=== PATIENT | female | born 1985 | race Caucasian/White ===

== ENCOUNTER 2018-09-24 17:00 | Emergency (ER) | payer OTHER ==
[2018-09-24 17:12] VITALS: O2SAT 98
--- NOTE | 2018-09-24 18:00 | ERPHSYRPT ---
- History of Present Illness Time Seen by Provider: 09/24/18 17:55 Source: patient, family Exam Limitations: no limitations Patient Subjective Stated Complaint: pt here for a wound check, she was burnt by grease to left hand 8 days ago pt has been seen x2 for this and is alternating slivadine and tripple antiboitc ointment Triage Nursing Assessment: pt left hand with swelling to top of hand, with open area to top of hand, has small amount of drainage to dression Physician History: The patient is a right-handed 33-year-old female who complains of accidentally burning her left hand in hot oil where she works at [employer] 8 days ago. She has been putting Silvadene and triple antibiotic on it. 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 It is swollen. She wants it evaluated again. Timing/Duration: day(s) (8), sudden, improved Quality: painful Severity: moderate Location: hands (left) Possible Causes: other (hot oil) Associated Symptoms: change in skin texture Allergies/Adverse Reactions: No Known Drug Allergies Allergy (Verified 09/24/18 17:12) Hx Tetanus, Diphtheria Vaccination/Date Given: Yes Hx Influenza Vaccination/Date Given: No Hx Pneumococcal Vaccination/Date Given: No Immunizations Up to Date: Yes - Review of Systems Constitutional: No Fever, No Chills Eyes: No Symptoms Ears, Nose, & Throat: No Symptoms Respiratory: No Cough, No Dyspnea Cardiac: No Chest Pain, No Edema, No Syncope Abdominal/Gastrointestinal: No Abdominal Pain, No Nausea, No Vomiting, No Diarrhea Genitourinary Symptoms: No Dysuria Musculoskeletal: No Back Pain, No Neck Pain Skin: Skin Lesions Neurological: No Dizziness, No Focal Weakness, No Sensory Changes Psychological: No Symptoms Endocrine: No Symptoms Hematologic/Lymphatic: No Symptoms Immunological/Allergic: No Symptoms All Other Systems: Reviewed and Negative - Past Medical History Pertinent Past Medical History: Yes Neurological History: Epilepsy, Seizures ENT History: No Pertinent History Cardiac History: No Pertinent History Respiratory History: No Pertinent History Endocrine Medical History: No Pertinent History Musculoskeletal History: No Pertinent History GI Medical History: No Pertinent History History: No Pertinent History Psycho-Social History: Anxiety, Depression Female Reproductive Disorders: No Pertinent History Other Medical History: Depression and anxiety. Tobacco Abuse - 1/2-1 ppd per patient. - Past Surgical History Past Surgical History: Yes Neuro Surgical History: No Pertinent History Cardiac: No Pertinent History Respiratory: No Pertinent History Gastrointestinal: No Pertinent History Genitourinary: No Pertinent History Musculoskeletal: No Pertinent History Female Surgical History: Section, Tubal Ligation Other Surgical History: d & c, X2 - Social History Smoking Status: Current every day smoker How long have you smoked: 14 years Exposure to second hand smoke: Yes Drug Use: none Patient Lives Alone: No - Female History Hx Last Menstrual Period: dec Hx Now: No - Nursing Vital Signs Nursing Vital Signs: Initial Vital Signs Temperature 98.5 F 09/24/18 17:06 Pulse Rate 91 H 09/24/18 17:06 Respiratory Rate 16 09/24/18 17:06 Blood Pressure 125/79 09/24/18 17:06 O2 Sat by Pulse Oximetry 98 09/24/18 17:06 Pain Scale Pain Intensity 9 - Physical Exam General Appearance: no apparent distress, alert Eye Exam: PERRL/EOMI, eyes nml inspection Ears, Nose, Throat Exam: normal ENT inspection, pharynx normal, moist mucous membranes Neck Exam: normal inspection, non-tender, supple, full range of motion Respiratory Exam: normal breath sounds, lungs clear, No respiratory distress Cardiovascular Exam: regular rate/rhythm, normal heart sounds Gastrointestinal/Abdomen Exam: soft, mass, No tenderness Pelvic Exam: not done Rectal Exam: not done Back Exam: normal inspection, normal range of motion, No CVA tenderness, No vertebral tenderness Extremity Exam: normal inspection, normal range of motion Neurologic Exam: alert, oriented x 3, cooperative, normal mood/affect, sensation nml, No motor deficits Skin Exam: other (On the dorsal aspect of the left hand there is a silver dollar sized area of healing pink skin tissue that is surrounded by sloughing skin from the large blister that had occurred due to the burn 8 days ago. The hand is mildly swollen. It is tender and painful for her to move her fingers.) SpO2 Interpretation: normal SpO2: 98 Oxygen Delivery: Room Air - Progress Progress Note: 09/24/18 18:00 The hand appears to be healing from the burn. However, because of the patient' s tenderness to area and mild swelling, I have elected to give Rocephin 1 g IM followed by Augmentin 875 one tablet twice a day for 10 days. - Departure Time of Disposition: 18:00 Departure Disposition: Home Clinical Impression: Burn of left hand Condition: Stable Critical Care Time: No Referrals: ANA MULLER MD [Primary Care Provider] - Additional Instructions: You have a healing burn to the backside of your left hand. Because of the tenderness and swelling, you were given Rocephin 1 g IM in the ER. Take Augmentin 875 one tablet 2 times a day for 10 days. You were also given Toradol 60 mg by IM in the ER. Continue with the Silvadene cream to the area. Follow-up with your primary medical doctor as needed. Prescriptions: Amoxicillin/Potassium Clav [Augmentin 875-125 Tablet] 875 mg PO BID #20 tablet
[2018-09-24] MEDS ORDERED: Rocephin 1000 MG INJ IM ONE (18:02)
[2018-09-24] MEDS ORDERED: TORAdol 30 mg Injection IM ONE (18:02)
[2018-09-24] MEDS ORDERED: TORAdol 30 mg Injection ONE (18:08)
[2018-09-24] MEDS ORDERED: XYLOCAINE 1% HCL 20 ML MDV ONE (18:09)
[2018-09-24] MEDS ORDERED: Rocephin 1000 MG INJ ONE (18:09)
[2018-09-24 18:36] VITALS: BP 114/69; PULSE 88
== END 2018-09-24 18:37 | disposition home or self-care (01) ==
LOC: ED 17:00
DX: T23.062D Burn of unspecified degree of back of left hand, subsequent encounter (principal)
CPT/HCPCS: 96372; 99284; J0696; J1885

== ENCOUNTER 2019-11-20 08:28 | Emergency (ER) | payer OTHER ==
--- NOTE | 2019-11-20 08:50 | ERPHSYRPT ---
- History of Present Illness Time Seen by Provider: 11/20/19 08:40 Source: patient Exam Limitations: no limitations Patient Subjective Stated Complaint: Headache Triage Nursing Assessment: Patient ambulated back to ED and transferred self to bed. Patient A+O X3. Patient's skin pink, warm and dry. Patient complains of headache for 5 days constant throbbing pain 8/10. Patient pupils PERRL. Patient also complains of dizziness. Patient has hx of migraines. Physician History: The patient is a 34-year-old female with a past medical history significant for migraine headaches as well as seizures presents with a chief complaint of a headache that started 5 days ago. Her headache was described as a sharp headache that was located diffusely across her entire head. The headache reportedly gradually became worse over the course of 5 days despite her taking Tylenol PM at night to go to bed in addition to Aleve. She also complained of photophobia, chills, nasal congestion as well as a nonproductive cough started within this time course as well. She denies fever, neck pain, vomiting, diarrhea, abdominal pain, shortness of breath and chest pain. Of note, the patient accompanied to other patients who are currently being evaluated in the ED for cough and cold symptoms. Her headache reportedly is mild to moderate severity and constant. She denies any recent head trauma, focal neuro deficits, vomiting, monoxide poisoning, phonophobia, and is currently being evaluated by a neurologist in [place] who reportedly is weaning her off Dilantin and started on Keppra for her seizures. The patient denies any recent seizure activity. She currently smokes but denies alcohol use in addition to illicit drug use to include IV drug use. Allergies/Adverse Reactions: No Known Drug Allergies Allergy (Verified 11/20/19 08:32) Hx Tetanus, Diphtheria Vaccination/Date Given: Yes Hx Influenza Vaccination/Date Given: No Hx Pneumococcal Vaccination/Date Given: No Immunizations Up to Date: Yes - Review of Systems Constitutional: Chills, No Fever Eyes: Photophobia Ears, Nose, & Throat: Ear Pain, Nose Congestion Respiratory: Cough, No Cyanosis, No Dyspnea, No Dyspnea on Exertion (PUENTES), No Stridor, No Wheezing Cardiac: No Chest Pain, No Syncope Abdominal/Gastrointestinal: Nausea, No Abdominal Pain, No Vomiting Genitourinary Symptoms: No Symptoms Musculoskeletal: Myalgias Skin: No Symptoms Neurological: No Symptoms Psychological: No Symptoms Endocrine: No Symptoms Hematologic/Lymphatic: No Symptoms Immunological/Allergic: No Symptoms All Other Systems: Reviewed and Negative - Past Medical History Pertinent Past Medical History: Yes Neurological History: Migraines, Seizures ENT History: No Pertinent History Cardiac History: No Pertinent History Respiratory History: No Pertinent History Endocrine Medical History: No Pertinent History Musculoskeletal History: No Pertinent History GI Medical History: No Pertinent History History: No Pertinent History Psycho-Social History: Anxiety, Depression Female Reproductive Disorders: No Pertinent History Other Medical History: PT. IS A SMOKER - Past Surgical History Past Surgical History: Yes Neuro Surgical History: No Pertinent History Cardiac: No Pertinent History Respiratory: No Pertinent History Gastrointestinal: No Pertinent History Genitourinary: No Pertinent History Musculoskeletal: No Pertinent History Female Surgical History: Section, Tubal Ligation Other Surgical History: d & c, X2 - Social History Smoking Status: Current every day smoker How long have you smoked: years Exposure to second hand smoke: Yes Drug Use: none Patient Lives Alone: No - Female History Hx Last Menstrual Period: end of last month Hx Now: No - Nursing Vital Signs Nursing Vital Signs: Initial Vital Signs Temperature 99.1 F 11/20/19 08:35 Pulse Rate 115 H 11/20/19 08:35 Respiratory Rate 20 11/20/19 08:35 Blood Pressure 118/74 11/20/19 08:35 O2 Sat by Pulse Oximetry 99 11/20/19 08:35 Pain Scale Pain Intensity 3 - Physical Exam General Appearance: no apparent distress, alert Eye Exam: PERRL/EOMI, other (Patient's conjunctive appear to be injected bilaterally), No scleral icterus Ears, Nose, Throat Exam: normal ENT inspection, pharynx normal, No TM abnormal ( R), No TM abnormal (L), No pharyngeal erythema, No tonsillar exudate Neck Exam: normal inspection, non-tender, supple, No meningismus, No Brudzinski , No Kernig's, No JVD Respiratory Exam: normal breath sounds, lungs clear, airway intact, No chest tenderness, No respiratory distress Cardiovascular Exam: normal peripheral pulses, tachycardia, capillary refill <2 sec, No murmur, No friction rub, No gallop Gastrointestinal/Abdomen Exam: soft, No tenderness, No distention, No mass, No guarding Pelvic Exam: not done Rectal Exam: deferred Back Exam: normal inspection Extremity Exam: normal inspection Neurologic Exam: alert, oriented x 3, cooperative, normal mood/affect, No motor deficits, No sensory deficit, No slurred speech, No EOM palsy Skin Exam: normal color, warm, dry, No rash, No petechiae, No jaundice SpO2 Interpretation: normal SpO2: 99 O2 Delivery: Room Air - Course Nursing assessment & vital signs reviewed: Yes - Radiology Exams Chest X-ray Interpretation: Reviewed by me, Negative Ordered Tests: Active Orders 24 hr Category Date Time Status IV Insertion STAT Care 11/20/19 09:00 Active CHEST 2 VIEWS (PA AND LAT) Stat Exams 11/20/19 08:59 Completed HCG,QUALITATIVE URINE Stat Lab 11/20/19 10:15 Completed UA W/RFX UR CULTURE Stat Lab 11/20/19 10:11 Ordered Medication Summary Discontinued Medications Generic Name Dose Route Start Last Admin Trade Name Freq PRN Reason Stop Dose Admin Diphenhydramine HCl 25 mg 11/20/19 09:00 11/20/19 09:21 Benadryl 50 Mg/Ml IV 11/20/19 09:01 25 mg STAT ONE Administration Diphenhydramine HCl Confirm 11/20/19 09:16 Benadryl 50 Mg/Ml Administered 11/20/19 09:17 Dose 50 mg .ROUTE .STK-MED ONE Sodium Chloride 1,000 mls @ 999 mls/hr 11/20/19 08:59 11/20/19 10:37 Sodium Chloride 0.9% 1000 Ml IV 11/20/19 09:59 Infused .Q1H1M STA Infusion Sodium Chloride Confirm 11/20/19 09:16 Sodium Chloride 0.9% 1000 Ml Administered 11/20/19 09:17 Dose 1,000 mls @ ud .ROUTE .STK-MED ONE Ketorolac Tromethamine 15 mg 11/20/19 09:00 11/20/19 09:21 Toradol 30 Mg Injection IV 11/20/19 09:01 15 mg STAT ONE Administration Ketorolac Tromethamine Confirm 11/20/19 09:16 Toradol 30 Mg Injection Administered 11/20/19 09:17 Dose 30 mg .ROUTE .STK-MED ONE Metoclopramide HCl 10 mg 11/20/19 09:00 11/20/19 09:20 Reglan 10 Mg/2 Ml IV 11/20/19 09:01 10 mg STAT ONE Administration Metoclopramide HCl Confirm 11/20/19 09:16 Reglan 10 Mg/2 Ml Administered 11/20/19 09:17 Dose 10 mg .ROUTE .STK-MED ONE Ondansetron HCl 4 mg 11/20/19 09:00 11/20/19 09:19 Zofran 4 Mg/2 Ml Vial IV 11/20/19 09:01 4 mg STAT ONE Administration Ondansetron HCl Confirm 11/20/19 09:16 Zofran 4 Mg/2 Ml Vial Administered 11/20/19 09:17 Dose 4 mg .ROUTE .STK-MED ONE Lab/Rad Data: Laboratory Results 11/20/19 11/20/19 Range/Units 10:15 09:04 Urine HCG, Qual NEGATIVE (Negative) Influenza Type A Ag POSITIVE (NEGATIVE) Influenza Type B Ag NEGATIVE (NEGATIVE) RSV (PCR) NEGATIVE (Negative) - Progress Progress: improved, re-examined Progress Note: 11/20/19 10:30 Patient is reassessed to find that her headache symptoms had improved. I informed her of her influenza A diagnosis and that if her UPT came back negative she would be discharged home. She was also informed that her chest x- ray showed no evidence of pneumonia. Given that she is out of the window for oral therapy, specifically greater than 48 hours of symptoms, I will defer prescribing Tamiflu or Xofluza at this time. Instructed to take Tylenol and/or ibuprofen in a rotating fashion to treat her symptoms and I will discharge her with a prescription for Zofran, saline nasal spray in addition to Afrin for symptomatic therapy. She is instructed to quarantine herself and to cover her mouth whenever she coughs to prevent spreading of the virus. She agreed with and verbally understood the discharge plan. 11/20/19 10:39 He was negative. The patient will be discharged home. Counseled pt/family regarding: lab results, diagnosis, need for follow-up, rad results - Departure Departure Disposition: Home Clinical Impression: Influenza A Condition: Stable Critical Care Time: No Referrals: ANA MULLER MD [Primary Care Provider] - Instructions: Flu, Adult (DC) Additional Instructions: Take Tylenol and/or ibuprofen as needed for any fever, aches or pains. He can purchase these medications [id number]. Please take these medications as instructed on the medication bottle. Prescriptions: Benzonatate [Tessalon Perle] 100 mg PO [id number] PRN #30 capsule PRN Reason: Cough Oxymetazoline HCl Nasal [Afrin Nasal Candler] 15 ml NS BID 3 Days #1 bottle Sodium Chloride [Saline Nasal Candler] 30 ml NS BID PRN #1 spray
[2019-11-20] MEDS ORDERED: TORAdol 30 mg Injection ONE (09:16)
[2019-11-20] MEDS ORDERED: Sodium Chloride 0.9% 1000 ML 1,000 ML ONE (09:16)
[2019-11-20] MEDS ORDERED: BENADRYL 50 MG/ML ONE (09:16)
[2019-11-20] MEDS ORDERED: Zofran 4 MG/2 ML VIAL ONE (09:16)
[2019-11-20] MEDS ORDERED: Reglan 10 MG/2 ML ONE (09:16)
[2019-11-20] MEDS: Zofran 4 MG/2 ML VIAL IV ONE (09:19)
[2019-11-20] MEDS: Reglan 10 MG/2 ML IV ONE (09:20)
[2019-11-20] MEDS: BENADRYL 50 MG/ML IV ONE (09:21)
[2019-11-20] MEDS: TORAdol 30 mg Injection IV ONE (09:21)
[2019-11-20] MEDS: Sodium Chloride 0.9% 1000 ML 1,000 ML IV STA (09:22)
[2019-11-20 09:52] LABS: INFLUENZA B NEGATIVE (NEGATIVE); RESPIRATORY SYNCTIAL VIRUS NEGATIVE (Negative)
[2019-11-20 09:53] LABS: INFLUENZA A POSITIVE (NEGATIVE)
--- NOTE | 2019-11-20 09:57 | XRAY ---
Indication: Cough and chest pain 5 days. Comparison: April 28, 2018. PA/lateral chest again demonstrates normal heart and lungs. 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 No new/acute findings.
[2019-11-20 10:38] VITALS: BP 118/71; PULSE 108
[2019-11-20 10:40] VITALS: O2SAT 99
[2019-11-20 10:46] LABS: Appearance SLIGHTLY CLOUDY (CLEAR); Bacteria RARE /HPF (NEGATIVE); Bilirubin NEGATIVE (NEGATIVE); Blood NEGATIVE Ery/ul (0-5); Epithelial Cells RARE /HPF (FEW); Glucose NEGATIVE (NEGATIVE); Ketones NEGATIVE (NEGATIVE); Leukocyte Esterase NEGATIVE (NEGATIVE); Mucus MANY /HPF (NEGATIVE); Nitrite NEGATIVE (NEGATIVE); Protein,Urine Dip NEGATIVE (Negative); Specific Gravity 1.019 (1.005-1.025); Urobilinogen NEGATIVE mg/dL (0-1)
== END 2019-11-20 10:50 | disposition home or self-care (01) ==
LOC: ED 08:28
DX: J09.X2 Influenza due to identified novel influenza A virus with other respiratory manifestations (principal)
CPT/HCPCS: 36000; 71046; 81001; 84703; 87086; 87631; 96360; 96374; 96375; 99284; J1200; J1885; J2405

== ENCOUNTER 2022-05-06 13:00 | Emergency (ER) | payer OTHER ==
[2022-05-06 13:14] VITALS: O2SAT 100
--- NOTE | 2022-05-06 13:49 | XRAY ---
Indication: Lateral foot foreign body. Comparison: January 05, 2015. 3 nonweightbearing views right foot demonstrates new 2 mm linear radiopaque soft tissue foreign body lateral to base 5th metatarsal. No other bony, articular, or soft tissue abnormalities.
--- NOTE | 2022-05-06 14:39 | ERPHSYRPT ---
- History of Present Illness Source: patient Exam Limitations: no limitations Patient Subjective Stated Complaint: Right foot injury Triage Nursing Assessment: Patient ambulated back to ED and transferred self to bed. Patient A+O X3. Patient's skin pink, warm and dry. Patient complains of right foot pain to bottom of foot. Patient states she was bare foot taking her dog out this am when she stepped on an unknown object and feel like "something" is in her foot. Patient complains of pain 7/10. small puncture noted to bottom of right foot. Physician History: 36 yo WF w possible piece of glass plantar aspect of R foot since 6:00AM while walking dog. Pt denies other injury and needs a tetanus. Method of Injury: other (Stepped on object while walking dog at 6:00AM) Occurred: other (6:00AM) Quality: intermittent Severity of Pain-Max: moderate Severity of Pain-Current: moderate Lower Extremities Pain: foot: right Modifying Factors: Improves With: movement Allergies/Adverse Reactions: No Known Drug Allergies Allergy (Verified 11/20/19 08:32) Hx Tetanus, Diphtheria Vaccination/Date Given: Yes Hx Influenza Vaccination/Date Given: No Hx Pneumococcal Vaccination/Date Given: No Immunizations Up to Date: Yes Travel Risk - International Travel Have you traveled outside of the country in past 3 weeks: No - Coronavirus Screening Are you exhibiting any of the following symptoms?: No Close contact with a COVID-19 positive Pt in past 14-21 Days: No - Vaccine Status Have you recieved a Covid-19 vaccination: Yes Director Of Cardiac Cath Lab: Unknown - Vaccination Dates Date of 2cond Vaccination (if applicable): na Dates if Unknown: NA - Review of Systems Constitutional: No Symptoms Eyes: No Symptoms Ears, Nose, & Throat: No Symptoms Respiratory: No Symptoms Cardiac: No Symptoms Abdominal/Gastrointestinal: No Symptoms Genitourinary Symptoms: No Symptoms Musculoskeletal: No Symptoms Skin: No Symptoms Neurological: No Symptoms Psychological: No Symptoms Endocrine: No Symptoms Hematologic/Lymphatic: No Symptoms Immunological/Allergic: No Symptoms - Past Medical History Pertinent Past Medical History: Yes Neurological History: Migraines, Seizures ENT History: No Pertinent History Cardiac History: No Pertinent History Respiratory History: No Pertinent History Endocrine Medical History: No Pertinent History Musculoskeletal History: No Pertinent History GI Medical History: No Pertinent History History: No Pertinent History Psycho-Social History: Anxiety, Depression Female Reproductive Disorders: No Pertinent History Other Medical History: PT. IS A SMOKER - Past Surgical History Past Surgical History: Yes Neuro Surgical History: No Pertinent History Cardiac: No Pertinent History Respiratory: No Pertinent History Gastrointestinal: No Pertinent History Genitourinary: No Pertinent History Musculoskeletal: No Pertinent History Female Surgical History: Section, Tubal Ligation Other Surgical History: d & c, X2 - Social History Smoking Status: Current every day smoker How long have you smoked: years Exposure to second hand smoke: Yes Drug Use: none Patient Lives Alone: No Significant Family History: no pertinent family hx - Female History Hx Last Menstrual Period: currently Hx Now: No - Nursing Vital Signs Nursing Vital Signs: Initial Vital Signs Temperature 97.6 F 05/06/22 13:08 Pulse Rate 97 H 05/06/22 13:08 Respiratory Rate 18 05/06/22 13:08 Blood Pressure 131/82 05/06/22 13:08 O2 Sat by Pulse Oximetry 100 05/06/22 13:08 Pain Scale Pain Intensity 5 WNL - Physical Exam General Appearance: no apparent distress Eyes, Ears, Nose, Throat Exam: normal ENT inspection, TMs normal, pharynx normal, moist mucous membranes Neck Exam: normal inspection, non-tender, supple, full range of motion, No Brudzinski, No Kernig's, No meningismus Cardiovascular/Respiratory Exam: normal breath sounds, regular rate/rhythm, heart sounds normal Gastrointestinal/Abdominal Exam: non-tender, soft Back Exam: normal inspection, normal range of motion, No CVA tenderness Hips Exam: bilateral: non-tender, normal inspection, normal range of motion, no evidence of injury Legs Exam: bilateral leg: non-tender, normal inspection, normal range of motion, no evidence of injury Knees Exam: bilateral knee: non-tender, normal inspection, normal range of motion, no evidence of injury Ankle Exam: bilateral ankle: non-tender, normal inspection, normal range of motion, no evidence of injury Foot Exam: right foot: other (R plantar foot w small puncture wound/No palpable FB/Good hemostasis/Good pedal pulse, distal sensation, and capillary return) Neuro/Tendon Exam: normal sensation, normal motor functions, normal tendon functions, responds to pain, no evidence tendon injury, No motor deficit, No sensory deficit Mental Status Exam: alert, oriented x 3, cooperative Skin Exam: normal color, warm, dry SpO2 Interpretation: normal SpO2: 100 O2 Delivery: Room Air Procedures - Laceration/Wound Repair Right Foot Wound Location: Right, foot Wound Length (cm): 1 Wound's Depth, Shape: linear (Small puncture wound) Wound Explored: clean Hibiclens Prep: Yes Anesthesia: 1% Lidocaine Volume Anesthetic (ccs): 5 Wound Debrided: Wound explored wo evidence of foreign body - Course Nursing assessment & vital signs reviewed: Yes - Radiology Exams Foot X-ray Interpretation: Discussed w/ radiologist (2mm FB lateral to 5th metatarsal) Ordered Tests: Active Orders 24 hr Category Date Time Status Crutches STAT Care 05/06/22 16:10 Completed FOOT (MINIMUM 3 VIEWS) Stat Exams 05/06/22 13:29 Completed Medication Summary Discontinued Medications Generic Name Dose Route Start Last Admin Trade Name Freq PRN Reason Stop Dose Admin Cefazolin Sodium 2 g 05/06/22 16:02 05/06/22 16:13 Cefazolin Sodium 1 Gm Vial IM 05/06/22 16:03 2 g STAT ONE Administration Cefazolin Sodium Confirm 05/06/22 16:07 Cefazolin Sodium 1 Gm Vial Administered 05/06/22 16:08 Dose 2 g .ROUTE .STK-MED ONE Diphtheria/Tetanus/Acell Pertussis 0.5 ml 05/06/22 14:48 05/06/22 14:55 Tdap --Diph,Pertuss(Acell),Tet Vac/Pf 0.5 Ml Vial IM 05/06/22 14:49 0.5 ml .ONCE ONE Administration Diphtheria/Tetanus/Acell Pertussis Confirm 05/06/22 14:53 Tdap --Diph,Pertuss(Acell),Tet Vac/Pf 0.5 Ml Vial Administered 05/06/22 14:54 Dose 0.5 ml IM .STK-MED ONE Sterile Water Confirm 05/06/22 16:08 Water For Injection,Sterile 10 Ml Vial Administered 05/06/22 16:09 Dose 10 ml IJ .STK-MED ONE - Progress Progress Note: 05/06/22 15:[address] Boswell, out of town until next Monday Spoke w Dr. Maloney, will see in office next week Unable to reach Dr. Kwok 05/06/22 16:03 Tdap IM 2gm IM Ancef Dr. Maloney 8:45 8:45 05/06/22 16:16 Use crutches, no weight bearing 05/06/22 21:19 Dr. Kwok later called and stated that he could see pt on Monday, but pt already has appointment w Dr. Maloney 05/06/22 21:20 R plantar FB per XR/Pt consented to local exploration/Anesthesia 1% Lido wo epi/Hibiclens prep/Wound explored for 15-20 minutes wo evidence of FB/Wound dressed per nursing/No comps Discussed with Dr.: Randall, Other (Dr. Vasquez) Counseled pt/family regarding: diagnosis, need for follow-up, rad results - Departure Departure Disposition: Home Clinical Impression: Foreign body in foot, right Condition: Stable Critical Care Time: No Referrals: ANA MULLER MD [Primary Care Provider] - Follow up/PCP as directed Instructions: Foreign Body in Skin (DC) Additional Instructions: Dr. Maloney 8:45 05/09/22(Dr. Jain's office) Nothing to eat-drink after midnight Pain meds as needed Start Cipro Wash foot twice a day with soap/water Watch for signs of infection-redness/increasing pain/swelling/temperature greater than 100.5 Forms: Work/School Release Form Prescriptions: Hydrocodone/Acetaminophen [Hydrocodone-Acetamin 5-325 mg] 1 tab PO Q4HPRN PRN #8 tablet MDD 6 PRN Reason: Pain Ciprofloxacin [Cipro 500 MG] 500 mg PO BID #14 tablet
[2022-05-06] MEDS ORDERED: Adacel Vial IM ONE ×2 (14:48→14:53)
[2022-05-06 16:02] VITALS: BP 128/81; PULSE 68
[2022-05-06] MEDS ORDERED: KEFZOL 1 GM IM ONE (16:02)
[2022-05-06] MEDS ORDERED: KEFZOL 1 GM ONE (16:07)
[2022-05-06] MEDS ORDERED: Sterile H2O 10 ml IJ ONE (16:08)
== END 2022-05-06 16:30 | disposition home or self-care (01) ==
LOC: ED 13:00
DX: S91.341A Puncture wound with foreign body, right foot, initial encounter (principal); W22.09XA Striking against other stationary object, initial encounter; Y93.K1 Activity, walking an animal; M79.671 Pain in right foot; Z72.0 Tobacco use; Z79.891 Long term (current) use of opiate analgesic
CPT/HCPCS: 20103; 73630; 90471; 90715; 96372; 99283; J0690